=== PATIENT | female | born 1975 | race Caucasian/White ===

== ENCOUNTER → 2017-04-27 | Outpatient (CLI) | payer OTHER ==
[~2017-04-27] MED LIST: BIRTH CONTROL PILL PO; PEPCID AC20 MG PO; PROTONIX PO; VITAMINS A-D-E1 EACH PO
--- NOTE | ~2017-04-27 | CT4 ---
[facility] A Service of [facility] RADIOLOGY TEXT RESULTS PATIENT: BRANNON CARMONA [facility] 75 UNIT #: [id number] AGE: [address]: Jeannie Zambrano APRN SEX: F ORDER DR: [id number] [facility] [address] [place], [place] [address] [id number] O MR#: [id number] Acc #: [id number] NAME: BRANNON CARMONA. : 1975 SEX: F STUDY DATE/TIME: 04/27/2017 16:20 UNIT: [facility] ROOM: STUDY DESCRIPTION: CT Abd and Pelv Wo Cont Attending Physician: Jeannie Zambrano A.P.R.N. Referring Physician: Jeannie Zambrano A.P.R.N. Ordering Physician: Jeannie Zambrano A.P.R.N. Primary Care Physician: Arnulfo Watts M.D. MEDICAL IMAGING REPORT This report is preliminary unless electronic signature is present EXAM CT abdomen and pelvis INDICATIONS Upper abdominal pain and epigastric pain. Rebound tenderness. TECHNIQUE CT abdomen and pelvis without contrast. Coronal and sagittal reconstructions were obtained. This CT exam was performed with one or more of the following radiation dose reduction techniques: automatic exposure control, adjustment of mA and/or kV according to patient size, and iterative reconstruction. COMPARISON CTA chest 06/29/2011. FINDINGS ABDOMEN: No urinary calculi. No hydronephrosis. The solid abdominal organs are grossly normal. The gallbladder is not distended. The bowel is not dilated. The appendix is normal. The abdominal aorta is normal in caliber. PELVIS: There is a small volume of free fluid in the pelvis. The uterus and ovaries are within normal limits. The uterus is retroverted. The bladder is unremarkable. No acute osseous abnormalities. IMPRESSION No acute findings in the abdomen or pelvis to account for the patient's [facility] A Service [facility] RADIOLOGY TEXT RESULTS PATIENT: BRANNON CARMONA LOCATION: [facility] : 75 UNIT #: [id number] AGE: [address]: Jeannie Zambrano APRN SEX: F ORDER DR: symptoms. Dictated by... Taras Lopez M.D. THIS IS AN ELECTRONICALLY VERIFIED REPORT Taras Lopez M.D. at 04/28/2017 3:07 PM ABHINAV/[place] TD: 04/28/2017 12:18 JOB #: [id number] MEDICAL IMAGING REPORT Page 1 of 1 COPY
== END | disposition home or self-care (01) ==
LOC: CCAT 16:11
DX: R10.13 Epigastric pain (principal); R10.10 Upper abdominal pain, unspecified; R10.819 Abdominal tenderness, unspecified site
CPT/HCPCS: 74176